=== PATIENT | female | born 1955 | race Caucasian/White ===

== ENCOUNTER 2021-07-26 02:45 | Inpatient (IN) ==
[2021-07-26] MEDS ORDERED: SODIUM CHLORIDE 0.9% 1000ML 1,000 ML IV ONE ×2 (03:12)
[2021-07-26] MEDS ORDERED: ONDANSETRON INJ 2 MG/ML 2 ML VIAL IV STA (03:12)
--- NOTE | 2021-07-26 03:16 | Emergency Department Note ---
Impression & Plan Hyponatremia, COVID-19, Dehydration ED Provider Note Name: DELMY MUNOZ Age: 66 Sex: F Arrives Via: Walk-In Informant: Patient ED Provider: Jimmy Bhatt MD Chief Complaint: Weakness Impression: See Above Medical Decision Makin yr old female with 10 days of covid arrives with worsening weakness and fatigued. Clearly dehydrated on exam, no neuro deficits and no evidence sepsis. Labs with acute electrolyte imbalance consistent with poor oral intake. She is feeling much improved with IV fluids. Given severity of electrolyte disturbance will need to come in for further management. She is not hypoxic and is breathing comfortably. Prior Medical Record and Triage/Nursing Notes reviewed by Me Additional history obtained from chart Differentials:Infection, dehydration, metabolic abnormality, hypo/hyper glycemia, electrolyte disturbance, anemia, hypoxia, cardiac sources, intracerebral event, toxicologic, neurologic, as well as other pathologies. Vital Signs: reviewed and remarkable for no significant abnormalities Interventions: saline lock, nss bolus 2 L IV Labs:Reviewed and remarkable for hypoNA, HypoK Consults:Dr Whalen Plan: Disposition:Hospitalization. Condition: Good History of Present Illness:66 yr old female arrives for evaluation of dehydration. Patient diagnosed with COVID 10 days ago. Initially cough and shob with fevers which has improved. She notes that that has improved but now with nausea, vomiting and diarrhea. Increasing weakness, fatigue and lightheaded. Notes worse with ambulation and standing. Better with rest. No blood in stool/vomit. No syncope, chest pain, shob, headache, neck pain, leg swelling, calf pain, abdominal pain, back pain, fevers, rashes, nor other symptoms. States she feels OK sitting in bed. ROS: See above HPI for pertinent positives & negatives. A total of 10 systems reviewed and were otherwise negative. Past Medical History:HTN, Endometrial cancer Past Surgical History:Hysterectomy Family History:See Below Social History:See Below Home Medications:See Below Allergies:See Below Vitals:Blood Pressure: 141/78, Pulse 61, RR 20, T 37.1C, O2 95% on RA Physical Exam: GENERAL: Patient is tired/dehydrated appearing and in no acute distress. EYES: No scleral icterus, unremarkable pupils. ENT: Mucous membranes dry, no nasal congestion. NECK: No masses appreciated, nomeningismus, trachea is midline. RESPIRATORY: No dyspnea. Clear to auscultation and equal bilaterally. No wheeze, no rhonchi. CARDIOVASCULAR: Regular rate and rhythm.No murmurs, rubs, gallops appreciated. GASTROINTESTINAL: Abdomen soft, non-tender, no peritonitis.Bowel sounds positive.No masses appreciated. BACK: No midline tenderness, no CVA tenderness EXTREMITIES: Normal motion all extremities, no cyanosis, no edema. NEUROLOGIC: Alert and oriented, no acute motor or sensory deficits, no focal weakness, cranial nerves grossly intact. SKIN: No rash, no jaundice, no diaphoresis. Poor skin turgor. PSYCH: Appropriate GCS: 15 ED Course: Times/Reassessments: Stable, feeling much improved with IV fluids, agreeable to hospitalization. Jimmy Bhatt MD Past Med/Surg History Medical History (Updated 07/27/21 @ 05:22 by Jimmy Bhatt MD) Hypertension Surgical History (Updated 07/26/21 @ 15:55 by Radha Ward MD, PhD) Endometrial ca Social History Smoking Status: Never smoker Hx Alcohol Use: No Hx Substance Use: No Preferred Language: Sinhala Communication Ability: Effective Maintenance Service Supervisor Required: No Beliefs That Will Affect Care: None Current Living Situation: Alone Other Information That Helps Us Care for You: No Feels Safe at Home: Yes Safety Concerns: Feels Safe At This Time Assistive Devices: None Allergies Allergies Allergy/AdvReac Type Severity Reaction Status Date / Time amoxicillin [From Augmentin] Allergy Severe Rash Verified 07/26/21 05:52 clavulanic acid Allergy Severe Unknown Verified 07/26/21 05:51 [From Augmentin] Penicillins Allergy Severe Unknown Verified 07/26/21 05:51 iodine Allergy Intermediate Unknown Verified 07/26/21 05:51 fexofenadine Allergy Unknown Rash Verified 07/26/21 05:52 pollen extracts Allergy Unknown Unknown Verified 07/26/21 05:52 povidone-iodine Allergy Unknown Unknown Verified 07/26/21 05:53 [From Betadine] ragweed pollen Allergy Unknown Unknown Verified 07/26/21 05:53 soap [From Betadine] Allergy Unknown Unknown Verified 07/26/21 05:53 Home Meds Home Medications Medication Instructions Recorded Confirmed Flonase 2 spray NA HS 07/26/21 07/26/21 lisinopril 20 20 - 25 tab PO DAILY 07/26/21 07/26/21 mg-hydrochlorothiazide 25 mg tablet Results & Data (ED) Vital Signs Vital Signs - 24 hr 07/26/21 02:53 Temperature 37.1 C Temperature Source Temporal Artery Scan Pulse Rate 61 Respiratory Rate 20 Blood Pressure 141/78 H Blood Pressure Mean 99 Blood Pressure Position Sitting Pulse Oximetry 95 Oxygen Delivery Method Room Air Sepsis Recent Fever Within 48 Hours No Sepsis New/Unexplained Change in Mental Status N/A Sepsis Action Taken by Nursing No Action Required Laboratory Data Result diagrams: 07/26/21 Unknown 07/26/21 Unknown Lab Results 07/26/21 07/26/21 Range/Units 04:25 04:25 COVID-19 Eval Order Covid19 at [facility] SARS-CoV-2 (PCR) POSITIVE A* (Negative) Administered Medications Acetaminophen (Acetaminophen 325 Mg Tab) 650 mg PO Q6H PRN PRN Reason: Fever/pain Stop: 08/25/21 07:12 Last Admin: 07/26/21 16:08 Dose: 650 mg Documented by: [id number] Enoxaparin Sodium (Enoxaparin Inj 40 Mg/0.4 Ml Syr) 40 mg SQ QAM WILMER Stop: 08/25/21 08:59 Last Admin: 07/26/21 08:17 Dose: 40 mg Documented by: [id number] Fluticasone Propionate (Fluticasone Propionate Na Spr 16 Gm Btl) 2 sprays NA HS WILMER Stop: 08/25/21 22:14 Last Admin: 07/26/21 22:29 Dose: 120 sprays Documented by: [id number] Dexamethasone 6 mg/ Syringe 1.5 mls @ 1 mls/min IV DAILY WILMER Stop: 08/05/21 13:29 Last Admin: 07/26/21 13:38 Dose: 1 mls/min Documented by: [id number] Lisinopril (Lisinopril 2.5 Mg Tab) 2.5 mg PO QAM WILMER Stop: 08/25/21 08:59 Last Admin: 07/26/21 08:18 Dose: 2.5 mg Documented by: [id number] Discontinued Medications Fluticasone Propionate (Fluticasone Propionate Na Spr 16 Gm Btl) 2 sprays NA DAILY WILMER Stop: 08/25/21 08:59 Last Admin: 07/26/21 08:24 Dose: Not Given Documented by: [id number] Sodium Chloride (Nss 1000ml) 1,000 mls @ 999 mls/hr IV .Q1H1M ONE Stop: 07/26/21 04:12 Last Infusion: 07/26/21 04:40 Dose: 0 mls/hr Documented by: [id number] Admin: 07/26/21 03:23 Dose: 999 mls/hr Documented by: [id number] Sodium Chloride (Nss 1000ml) 1,000 mls @ 999 mls/hr IV .Q1H1M ONE Stop: 07/26/21 04:12 Last Infusion: 07/26/21 04:40 Dose: 0 mls/hr Documented by: [id number] Admin: 07/26/21 03:23 Dose: 999 mls/hr Documented by: [id number] Potassium Chloride (K Parker / Wtr) 10 meq in 100 mls @ 100 mls/hr IV Q1H WILMER Stop: 07/26/21 06:44 Last Infusion: 07/26/21 08:01 Dose: 0 mls/hr Documented by: [id number] Admin: 07/26/21 05:56 Dose: 100 mls/hr Documented by: [id number] Infusion: 07/26/21 05:54 Dose: 100 mls/hr Documented by: [id number] Admin: 07/26/21 04:54 Dose: 100 mls/hr Documented by: [id number] Magnesium Sulfate/Dextrose (Magnesium Sulfate / D5w) 1 gm in 100 mls @ 50 mls/hr IV ONE ONE Stop: 07/26/21 09:29 Last Infusion: 07/26/21 10:26 Dose: 0 mls/hr Documented by: [id number] Admin: 07/26/21 08:16 Dose: 50 mls/hr Documented by: [id number] Potassium Chloride 20 meq/ (Dextrose) 510 mls @ 200 mls/hr IV .Q2H33M ONE Stop: 07/26/21 19:32 Last Infusion: 07/26/21 19:39 Dose: 0 mls/hr Documented by: [id number] Admin: 07/26/21 17:06 Dose: 200 mls/hr Documented by: [id number] Ondansetron HCl (Ondansetron Inj 2 Mg/Ml 2 Ml Vial) 4 mg IV NOW STA Stop: 07/26/21 03:13 Last Admin: 07/26/21 03:23 Dose: 4 mg Documented by: [id number] Potassium Chloride (Potassium Chloride Pwd 20 Meq Pack) 40 meq PO NOW STA Stop: 07/26/21 05:25 Last Admin: 07/26/21 06:23 Dose: 40 meq Documented by: [id number] Potassium Chloride (Potassium Chloride Pwd 20 Meq Pack) 40 meq PO ONE ONE Stop: 07/26/21 08:01 Last Admin: 07/26/21 08:17 Dose: 40 meq Documented by: [id number] Potassium Chloride (Potassium Chloride Pwd 20 Meq Pack) 40 meq PO ONE ONE Stop: 07/26/21 10:01 Last Admin: 07/26/21 11:22 Dose: 40 meq Documented by: [id number] Potassium Chloride (Potassium Chloride Crtab 20 Meq Tabcr) 40 meq PO ONE ONE Stop: 07/26/21 15:36 Last Admin: 07/26/21 16:08 Dose: 40 meq Documented by: [id number] Sodium Chloride (Sodium Chloride 0.65% Na Soln 45 Ml ([place])) Confirm Administered Dose 225 sprays .ROUTE .STK-MED ONE Stop: 07/26/21 14:26 Last Admin: 07/26/21 14:37 Dose: 2 sprays Documented by: [id number] Discharge Plan Visit Data Chief Complaint: Dehydration Stated Complaint: DEHYDRATED ED Provider: Jimmy Bhatt Discharge Problem: Hyponatremia, COVID-19, Dehydration Patient Disposition: Admitted As Inpatient Discharge Instructions Interventions: ED Discharge Assessment Last Done: 07/26/21 06:36
[2021-07-26 03:53] LABS: Basophils # (auto) 0.01 K/uL (0-0.2); Basophils % (auto) 0.1 %; Eosinophils # (auto) 0.02 K/uL (0-0.5); Eosinophils % (auto) 0.3 %; Hematocrit (blood only) 38.9 % (37-47); Hemoglobin 14.2 g/dL (12.0-16.0); Immature Granulocytes # (auto) 0.02 K/uL (0.00-0.02); Immature Granulocytes % (auto) 0.3 %; Lymphocytes # (auto) 0.86 K/uL (1.2-3.4); Lymphocytes % (auto) 12.9 %; Mean Corpuscular Hgb Conc 36.5 g/dL (32-36); Mean Corpuscular Volume 82.2 fL (80-100); Mean Platelet Volume 10.4 fL (7.4-10.4); Monocytes # (auto) 0.45 K/uL (0.11-0.59); Monocytes % (auto) 6.7 %; Neutrophils # (auto) 5.33 K/uL (1.4-6.5); Neutrophils % (auto) 79.7 %; Platelet Count 138 K/uL (130-400); RDW Coefficient of Variation 12.3 % (11.5-14.5); RDW Standard Deviation 37.2 fL (36.4-46.3); Red Blood Count 4.73 M/uL (4.2-5.4); White Blood Count 6.69 K/uL (4.8-10.8)
[2021-07-26 04:28] LABS: BUN Creatinine Ratio 9.3 (10-20); Calcium 7.9 mg/dl (8.5-10.1); Creatinine Clr Calc Pharmacy 99.7 ml/min; Est GFR (African American) 109.3 ml/min; Est GFR (Non-African American) 94.3 ml/min; Potassium 2.5 mmol/L (3.5-5.1)
[2021-07-26] MEDS: POTASSIUM CHLORIDE / WTR 10 MEQ/100 ML PLCT IV SCH ×2 (04:54→05:56)
[2021-07-26] MEDS ORDERED: POTASSIUM CHLORIDE PWD 20 MEQ PACK PO STA (05:24)
--- NOTE | 2021-07-26 05:24 | History & Physical Report ---
Date of Service July 26, 2021 Assessment & Plan (1) Hyponatremia: Plan: Hyponatremia, hypokalemia Multifactorial : Diarrhea secondary to COVID-19 illness rule out C. difficile, history Keflex Rx a few months ago home HCTZ contributory Hypertension, BP on the lower side uterine cancer status post surgery Medical telemetry Careful correction of sodium Hyponatremia work-up Replace potassium, check magnesium Appropriate to hold home diuretic for now until hyponatremia, hypokalemia resolved. Appropriate to decrease maintenance lisinopril dose for now given borderline BP Stool C. difficile DVT prophylaxis. Lovenox subcu Full code Text document was generated using Fingo voice recognition software. It may contain grammatical or spelling errors. Kindly contact undersigned for clarification of any documentation item in question. History of Present Illness Chief Complaint: Diarrhea, weakness, dehydration Primary Care Provider: Tu Neff MD History obtained from patient and records. Medical history significant for hypertension, uterine cancer status post surgery. Last week, patient had cough, fever symptoms. [place]. Patient has not received COVID-19 vaccination. Cough and shortness of breath symptoms resolved without antibiotic Rx. Patient later noted nausea, vomiting, watery diarrhea symptoms without abdominal pain. Increasing weakness and fatigue and lightheadedness. Patient denies chest pain, S OB. No recent out-of-town travel. Outpatient Keflex course about 2 months ago as per patient. Patient consulted ER for evaluation. Medical History as above Surgical History : Pelvic surgery Family History : DM, heart disease Personal/Social history : Non-smoker, no EtOH intake, cleaning work Allergies Allergy/AdvReac Type Severity Reaction Status Date / Time amoxicillin [From Augmentin] Allergy Severe Rash Verified 07/26/21 05:52 clavulanic acid Allergy Severe Unknown Verified 07/26/21 05:51 [From Augmentin] Penicillins Allergy Severe Unknown Verified 07/26/21 05:51 iodine Allergy Intermediate Unknown Verified 07/26/21 05:51 fexofenadine Allergy Unknown Rash Verified 07/26/21 05:52 pollen extracts Allergy Unknown Unknown Verified 07/26/21 05:52 povidone-iodine Allergy Unknown Unknown Verified 07/26/21 05:53 [From Betadine] ragweed pollen Allergy Unknown Unknown Verified 07/26/21 05:53 soap [From Betadine] Allergy Unknown Unknown Verified 07/26/21 05:53 Home Medications Medication Instructions Recorded Confirmed Type Flonase 2 spray NA DAILY 07/26/21 07/26/21 History lisinopril 20 20 - 25 tab PO DAILY 07/26/21 07/26/21 History mg-hydrochlorothiazide 25 mg tablet Past Med/Surg History Social History Smoking Status: Never smoker Hx Alcohol Use: No Hx Substance Use: No Preferred Language: Namibian Communication Ability: Effective Marina Manager Required: No Beliefs That Will Affect Care: None Current Living Situation: Alone Other Information That Helps Us Care for You: No Feels Safe at Home: Yes Safety Concerns: Feels Safe At This Time Assistive Devices: Denture - Upper Review of Systems Review of Systems: As per HPI, all 10 systems reviewed, all other ROS negative Physical Exam Physical Exam: GENERAL: Comfortable, slightly anxious, morbidly obese, looks younger for stated age, no respiratory distress SKIN: Normal color, warm HEENT: [place] palpebral conjunctivae, no ptosis, dry buccal mucosa NECK : Supple, short neck, no tenderness CHEST : CTA, no tenderness HEART : RRR, no obvious murmurs ABDOMEN: Some distention, nontender EXTREMITIES : Minimal LE swelling, no LE tenderness, no other conspicuous deformities noted NEUROLOGIC : Coherent, no facial asymmetry, no other gross focality Results & Data Results & Data ([facility]) Vital Signs (Past 12 Hours) Vital Signs Temp Pulse Pulse Resp BP BP Pulse Ox 07/26/21 04:58 63 18 125/74 94 07/26/21 03:34 71 18 109/68 95 07/26/21 02:53 37.1 C 61 20 141/78 H 95 Laboratory Results Laboratory Results WBC 6.69 K/uL (4.8-10.8) 07/26/21 Unknown RBC 4.73 M/uL (4.2-5.4) 07/26/21 Unknown Hgb 14.2 g/dL (12.0-16.0) 07/26/21 Unknown Hct 38.9 % (37-47) 07/26/21 Unknown MCV 82.2 fL (80-100) 07/26/21 Unknown MCH 30.0 pg (25-34) 07/26/21 Unknown MCHC 36.5 g/dL (32-36) H 07/26/21 Unknown RDW Std Deviation 37.2 fL (36.4-46.3) 07/26/21 Unknown RDW Coeff of Jaguar 12.3 % (11.5-14.5) 07/26/21 Unknown Plt Count 138 K/uL (130-400) 07/26/21 Unknown MPV 10.4 fL (7.4-10.4) 07/26/21 Unknown Immature Gran % (Auto) 0.3 % 07/26/21 Unknown Neut % (Auto) 79.7 % 07/26/21 Unknown Lymph % (Auto) 12.9 % 07/26/21 Unknown [place] % (Auto) 6.7 % 07/26/21 Unknown Eos % (Auto) 0.3 % 07/26/21 Unknown Baso % (Auto) 0.1 % 07/26/21 Unknown Neut # (Auto) 5.33 K/uL (1.4-6.5) 07/26/21 Unknown Lymph # (Auto) 0.86 K/uL (1.2-3.4) L 07/26/21 Unknown [place] # (Auto) 0.45 K/uL (0.11-0.59) 07/26/21 Unknown Eos # (Auto) 0.02 K/uL (0-0.5) 07/26/21 Unknown Baso # (Auto) 0.01 K/uL (0-0.2) 07/26/21 Unknown Immature Gran # (Auto) 0.02 K/uL (0.00-0.02) 07/26/21 Unknown Sodium 121 mmol/L (136-145) L 07/26/21 Unknown Potassium 2.5 mmol/L (3.5-5.1) L* 07/26/21 Unknown Chloride 83 mmol/L (98-107) L 07/26/21 Unknown Carbon Dioxide 30 mmol/L (21-32) 07/26/21 Unknown Anion Gap 8.0 (3-11) 07/26/21 Unknown BUN 6 mg/dl (7-18) L 07/26/21 Unknown Creatinine 0.60 mg/dl (0.6-1.2) 07/26/21 Unknown Est Cr Clr Drug Dosing 99.7 ml/min 07/26/21 Unknown Est GFR ( Amer) 109.3 ml/min 07/26/21 Unknown Est GFR (Non-Af Amer) 94.3 ml/min 07/26/21 Unknown BUN/Creatinine Ratio 9.3 (10-20) L 07/26/21 Unknown Glucose 105 mg/dl (70-99) H 07/26/21 Unknown Calcium 7.9 mg/dl (8.5-10.1) L 07/26/21 Unknown COVID-19 Eval Order Covid19 at [facility] 07/26/21 04:25
[2021-07-26 06:44] LABS: Albumin Level 3.2 gm/dl (3.4-5.0); Bilirubin Direct 0.2 mg/dl (0-0.2); Bilirubin,Total 0.6 mg/dl (0.2-1); Magnesium 1.8 mg/dl (1.8-2.4); Thyroid Stimulating Hormone 2.89 uIu/ml (0.300-4.500); Total Protein 7.1 gm/dl (6.4-8.2)
[2021-07-26] MEDS ORDERED: LORazepam 0.5 MG/1 ML VIAL IV PRN (07:13)
[2021-07-26] MEDS ORDERED: ACETAMINOPHEN 325 MG TAB PO PRN (07:13)
[2021-07-26] MEDS ORDERED: PROMETHAZINE HCL 12.5 MG in SODIUM CHLORIDE 0.9% 50 ML IV PRN (07:13)
[2021-07-26] MEDS ORDERED: MAGNESIUM SULFATE / D5W 1 GM/100 ML BAG IV ONE (07:30)
[2021-07-26] MEDS ORDERED: POTASSIUM CHLORIDE PWD 20 MEQ PACK PO ONE ×2 (08:00→10:00)
[2021-07-26] MEDS: FLUTICASONE PROPIONATE NA SPR 16 GM BTL SCH ×3 (08:17→22:29)
[2021-07-26] MEDS: ENOXAPARIN INJ 40 MG/0.4 ML SYR SQ SCH (08:17)
[2021-07-26] MEDS: lisinopril 2.5 MG TAB PO SCH (08:18)
--- NOTE | 2021-07-26 10:32 | XRay Report ---
XR chest 1V portable HISTORY: 66 years-old Female covid acute shortness breath with pneumonia COMPARISON: None TECHNIQUE: Portable AP view of the chest FINDINGS: Cardiac silhouette is upper limits of normal in size. Mild right hemidiaphragmatic elevation. Trace r ight pleural effusion. Mild patchy bilateral airspace opacities with interstitial coarsening. No pneu mothorax. Bones appear grossly intact. IMPRESSION: Bilateral pulmonary opacities are compatible with multifocal pneumonia. ACT 112: Negative or not required by law. The above report was generated using voice recognition software. It may contain grammatical, syntax o r spelling errors. Electronically signed by: Cezar Salgado M.D. 07/26/2021 10:31 AM
[2021-07-26 12:39] LABS: Appearance Urine Clear (Clear); Bilirubin Urine Negative (Negative); Blood Urine Negative (Negative); Color Urine Yellow; Glucose Urine UA Negative (Negative); Ketones Urine Negative (Negative); Leukocyte Esterase Urine Negative (Negative); Nitrite Urine Negative (Negative); Protein Urine Negative (Negative); Specific Gravity Urine 1.003 (1.000-1.030); Urobilinogen Urine Negative (Negative)
[2021-07-26] MEDS ORDERED: ALBUTEROL 0.083% NEBU SOLN 3 ML VIAL NEB PRN (12:53)
[2021-07-26 13:35] LABS: BUN Creatinine Ratio 6.9 (10-20); Calcium 8.1 mg/dl (8.5-10.1); Creatinine Clr Calc Pharmacy 107.6 ml/min; Est GFR (African American) 111.8 ml/min; Est GFR (Non-African American) 96.5 ml/min; Potassium 3.3 mmol/L (3.5-5.1)
[2021-07-26] MEDS: dexAMETHasone 6 MG in SYRINGE 0 ML IV SCH (13:38)
[2021-07-26] MEDS ORDERED: ONDANSETRON INJ 2 MG/ML 2 ML VIAL IV PRN (13:45)
[2021-07-26] MEDS ORDERED: SODIUM CHLORIDE 0.65% NA SOLN 45 ML (OCEAN) ONE (14:25)
[2021-07-26] MEDS ORDERED: POTASSIUM CHLORIDE CRTAB 20 MEQ TABCR PO ONE (15:35)
--- NOTE | 2021-07-26 15:46 | Nephrology Consultation ---
Date of Consultation July 26, 2021 Assessment & Plan (1) Hyponatremia: hypotonic hyponatremia from polydipsia based on labs and dehydration based on hx and response to therapy. corrected 10 points in between 6-12 hours. K has improved but not normalized -goal sNa is 127 at 0200 tomorrow; though in dehydrated pts overcorrection can be challenging to reverse -goal K = 4 -continue w/o fluid limit for now -1/2L D5W with 20 mEq total of K ordered -recheck bmp ordered for 1999 -NO NSAIDS; No hctz - agree w/ continuing to avoid these History of Present Illness Reason for Consultation: hyponatremia Requesting Physician: Dr Kelly Attending Physician: Nacho Dumont MD History of Present Illness 66 y/o F whom I'm asked to see for hyponatremia was admitted early this morning with severe hyponatremia and hypokalemia after about several days of outpatient / at home care for Covid. Her presenting sodium was 121; K was 2.5 >>no timestamp was submitted with these labs. On hctz as OP; also hx of resected uterine cancer. Last week pt had + OP covid test obtained to evaluate F, cough. Was managing self at home w/ OTC therapy including advil daily. For the past 3 days before andmhad diarrhea, vomiting, minimal po intkae, increasing fatigue and gener alized weakness. no bleeding, no new/worrisome voiding sx. no falls. Denies dypsnea or edema. she had 2L NS in ER after presenting w/ labs above as well as 20 mEq IV K and 120 mEq po K. She was on clear liquids when I evaluated her at approximately noon and with ongoing marked fatigue and generalized weakness; no sob, no BM since arrival, no emesis, no confusion. Allergies Allergy/AdvReac Type Severity Reaction Status Date / Time amoxicillin [From Augmentin] Allergy Severe Rash Verified 07/26/21 05:52 clavulanic acid Allergy Severe Unknown Verified 07/26/21 05:51 [From Augmentin] Penicillins Allergy Severe Unknown Verified 07/26/21 05:51 iodine Allergy Intermediate Unknown Verified 07/26/21 05:51 fexofenadine Allergy Unknown Rash Verified 07/26/21 05:52 pollen extracts Allergy Unknown Unknown Verified 07/26/21 05:52 povidone-iodine Allergy Unknown Unknown Verified 07/26/21 05:53 [From Betadine] ragweed pollen Allergy Unknown Unknown Verified 07/26/21 05:53 soap [From Betadine] Allergy Unknown Unknown Verified 07/26/21 05:53 Home Medications Medication Instructions Recorded Confirmed Type Flonase 2 spray NA DAILY 07/26/21 07/26/21 History lisinopril 20 20 - 25 tab PO DAILY 07/26/21 07/26/21 History mg-hydrochlorothiazide 25 mg tablet Patient History Medical History (Updated 07/26/21 @ 15:52 by Radha Ward MD, PhD) Hypertension Surgical History (Updated 07/26/21 @ 15:55 by Radha Ward MD, PhD) Endometrial ca Social History Smoking Status: Never smoker Hx Alcohol Use: No Hx Substance Use: No Preferred Language: [place] Communication Ability: Effective Paper Sheeter Required: No Beliefs That Will Affect Care: None Current Living Situation: Alone Other Information That Helps Us Care for You: No Feels Safe at Home: Yes Safety Concerns: Feels Safe At This Time Assistive Devices: Denture - Upper Review of Systems Review of Systems: All systems reviewed & are unremarkable except as noted in HPI & below Physical Exam Constitutional: well developed and well nourished on RA, looks tired Eyes: EOM intact bilaterally ENMT: Ears: no external ear abnormality Nose: no external nose abnormality Mouth: + dry oral mucous membranes Neck: no nuchal rigidity Respiratory: normal respiratory effort Auscultation: + diminished lung sounds and + crackles (crackles BL posterior de la torre not only bases) Cardiovascular: RRR, no murmur, no edema Gastrointestinal (Abdomen): Inspection/Auscultation: normal bowel sounds Percussion/Palpation: abdomen soft; abdomen nontender Musculoskeletal: Extremities: strength 5/5 throughout Skin: no rashes, warm and dry Neurologic: gomez, fluent if limited speech, no tremor Psychiatric: Orientation: oriented x 3 and + guarded Results & Data ([facility]) Vital Signs (Past 12 Hours) Vital Signs Temp Pulse Pulse Resp BP Pulse Ox Pulse Ox 07/26/21 11:19 37.2 C 62 19 119/62 93 07/26/21 07:38 36.9 C 61 19 131/66 94 07/26/21 07:28 36.5 C 59 L 131/66 94 07/26/21 07:15 61 07/26/21 07:13 94 07/26/21 07:06 36.8 C 63 20 147/80 H 91 07/26/21 06:18 68 18 120/68 93 07/26/21 04:58 63 18 125/74 94 Laboratory Results 07/26/21 Unknown 07/26/21 Unknown ur osm 87, Sanjeev 21; serum osms 248 Diagnostic Findings cxr IMPRESSION: Bilateral pulmonary opacities are compatible with multifocal pneumonia.
--- NOTE | 2021-07-26 15:57 | Hospitalist Progress Note ---
Date of Service July 26, 2021 Assessment & Plan (1) Hyponatremia: Plan: Multifocal COVID 19 pneumonia CXR:Bilateral pulmonary opacities are compatible with multifocal pneumonia. Saturations dropped below 94% Procalcitonin, CRP pending Started on Dexamethasone Isolation precautions--Airborne/Contact Encourage frequent Proning Lasix, Nebs as needed DVT prophylaxis on Lovenox Consider empiric antibiotics if procalcitonin elevated Check stool for C. difficile if recurrence of diarrhea Nausea, vomiting, diarrhea Secondary to COVID-19 infection Stool studies pending Received IV fluids Hyponatremia Hypokalemia Secondary to GI loses, Poor oral intake HCTZ contributed as well Sodium: 121> 132 Received IV fluids Hold HCTZ Nephrology consulted Replace electrolytes as needed Hypertension Continue lisinopril Monitor H/O Uterine cancer S/P surgery DVT Px: Lovenox SQ Code Status Full code Admission and Anticipated Discharge Date Admission Date: July 26, 2021 Subjective Patient is seen and examined at bedside States having cough with yellow expectoration Poor appetite States having generalized weakness and feeling tired Diarrhea resolved Reports nausea but no vomiting Denies chest Pain Review of Systems Review of Systems: All systems reviewed & are unremarkable except as noted in Subjective Physical Exam Physical Exam: Physical Exam: Vitals signs as noted above General Appearance:Obese, no apparent distress Head: normocephalic, Atraumatic Eyes: normal inspection, EOMI Neck: supple, Trachea midline Respiratory/Chest: Decreased breath sounds, CTA, No accessory muscle use Cardiovascular: S1, S2, No murmur Abdomen/GI:Soft, Non tender, Bowel sounds present Extremities/Musculoskeletal:normal inspection, no edema Neurologic/Psych:AAOX3, grossly no focal neurological deficits Skin: normal color, warm Results & Data Results & Data ([facility]) Vital Signs (Past 12 Hours) Vital Signs Temp Pulse Pulse Resp BP Pulse Ox Pulse Ox 07/26/21 15:43 38.2 C H 72 20 132/70 92 07/26/21 11:19 37.2 C 62 19 119/62 93 07/26/21 07:38 36.9 C 61 19 131/66 94 07/26/21 07:28 36.5 C 59 L 131/66 94 07/26/21 07:15 61 07/26/21 07:13 94 07/26/21 07:06 36.8 C 63 20 147/80 H 91 07/26/21 06:18 68 18 120/68 93 07/26/21 04:58 63 18 125/74 94 Laboratory Results Short CBC 07/26/21 Range/Units Unknown WBC 6.69 (4.8-10.8) K/uL Hgb 14.2 (12.0-16.0) g/dL Hct 38.9 (37-47) % Plt Count 138 (130-400) K/uL BMP 07/26/21 07/26/21 07/26/21 09:36 12:17 Unknown Sodium 132 L D 132 L 121 L Potassium 3.3 L D 2.5 L* Chloride 100 83 L Carbon Dioxide 28 30 BUN 4 L 6 L Creatinine 0.56 L 0.60 Glucose 95 105 H Calcium 8.1 L 7.9 L Liver Function 07/26/21 Range/Units Unknown Total Bilirubin 0.6 (0.2-1) mg/dl Direct Bilirubin 0.2 (0-0.2) mg/dl AST 112 H (15-37) U/L ALT 61 (12-78) U/L Alkaline Phosphatase 58 (45-117) U/L Albumin 3.2 L (3.4-5.0) gm/dl Urine 07/26/21 Range/Units 11:45 Urine Color Yellow Urine Appearance Clear (Clear) Urine pH 8.0 H (4.5-7.5) Ur Specific [place] 1.003 (1.000-1.030) Urine Protein Negative (Negative) Urine Glucose (UA) Negative (Negative)
[2021-07-26] MEDS ORDERED: POTASSIUM CHLORIDE 20 MEQ in DEXTROSE 5% 500 ML IV ONE (17:00)
[2021-07-26 20:15] LABS: BUN Creatinine Ratio 6.5 (10-20); C Reactive Protein 5.66 mg/dl (0-0.29); Calcium 7.7 mg/dl (8.5-10.1); Creatinine Clr Calc Pharmacy 100.5 ml/min; Est GFR (African American) 109.3 ml/min; Est GFR (Non-African American) 94.3 ml/min; Ferritin 452.5 ng/ml (8-388); Potassium 4.1 mmol/L (3.5-5.1)
[2021-07-27] MEDS: lisinopril 2.5 MG TAB PO SCH (07:33)
[2021-07-27] MEDS: dexAMETHasone 6 MG in SYRINGE 0 ML IV SCH (07:33)
[2021-07-27] MEDS: ENOXAPARIN INJ 40 MG/0.4 ML SYR SQ SCH (07:33)
[2021-07-27 08:37] LABS: Basophils # (auto) 0.01 K/uL (0-0.2); Basophils % (auto) 0.2 %; Hematocrit (blood only) 39.2 % (37-47); Hemoglobin 13.5 g/dL (12.0-16.0); Immature Granulocytes # (auto) 0.01 K/uL (0.00-0.02); Immature Granulocytes % (auto) 0.2 %; Lymphocytes # (auto) 0.58 K/uL (1.2-3.4); Mean Corpuscular Hemoglobin 29.6 pg (25-34); Mean Corpuscular Hgb Conc 34.4 g/dL (32-36); Mean Platelet Volume 10.4 fL (7.4-10.4); Monocytes # (auto) 0.42 K/uL (0.11-0.59); Monocytes % (auto) 9.4 %; Neutrophils # (auto) 3.44 K/uL (1.4-6.5); Neutrophils % (auto) 77.2 %; Platelet Count 171 K/uL (130-400); RDW Coefficient of Variation 13.2 % (11.5-14.5); RDW Standard Deviation 41.7 fL (36.4-46.3); Red Blood Count 4.56 M/uL (4.2-5.4); White Blood Count 4.46 K/uL (4.8-10.8)
[2021-07-27 09:06] LABS: BUN Creatinine Ratio 8.1 (10-20); Calcium 8.2 mg/dl (8.5-10.1); Creatinine Clr Calc Pharmacy 110.3 ml/min; Est GFR (African American) 113.2 ml/min; Est GFR (Non-African American) 97.6 ml/min; Potassium 3.8 mmol/L (3.5-5.1)
[2021-07-27] MEDS ORDERED: MELATONIN 3 MG TAB PO PRN (11:28)
--- NOTE | 2021-07-27 12:17 | Nephrology Progress Note ---
Date of Service July 27, 2021 Assessment & Plan (1) Hyponatremia: Plan: hypotonic hyponatremia from polydipsia based on labs and dehydration based on hx and response to therapy. corrected 10 points in between 6-12 hours and then stabilized. K has improved and nearly normalized after massive supplementation. attempted to reverse her rapid correction rate yesterday but as expected in this dehydrated pt overcorrection was challenging to reverse -goal K = 4 -continue w/o fluid limit for now -daily bmp while in house -NO NSAIDS; No hctz - agree w/ continuing to avoid these after d/c as well (see below) (2) Hypertension: Plan: controlled on very low dose lisinopril currently - increase as below Plan: Will sign off; I spent >10 minutes face to face w/ pt reviewing recs below and explaining hyponatremia today DISCHARGE RECOMMENDATIONS FOR NEPHROLOGY: -at d/c would start her on 10-20 mg daily lisinopril depending on clinical status > PCP can increase dose after d/c -avoid hctz in this pt unless/until full dose ACEI in place and labs followed closely -bmp when she sees pcp in f/u; recommend another bmp in 2-3 months for f/u -no indication to see nephrology in F/U unless hyponatremia issues persist -advised her to use compression socks to control pedal edema that she sometimes has rather than medication Care coordinated w/ Dr Dumont. Admission and Anticipated Discharge Date Admission Date: July 26, 2021 Subjective feels much improved today; tolerating po; states she walked 8 labs of unit w/o sob; no longer weak; no N/v/d Review of Systems Review of Systems: All systems reviewed & are unremarkable except as noted in Subjective Physical Exam Constitutional: well developed and well nourished Eyes: EOM intact bilaterally ENMT: Ears: no external ear abnormality Nose: no external nose abnormality Mouth: + dry oral mucous membranes Neck: no nuchal rigidity Respiratory: normal respiratory effort Auscultation: + diminished lung sounds; no crackles (crackles have resolved) Cardiovascular: RRR, no murmur, no edema Gastrointestinal (Abdomen): Inspection/Auscultation: normal bowel sounds Percussion/Palpation: abdomen soft; abdomen nontender Musculoskeletal: Extremities: strength 5/5 throughout Skin: no rashes, warm and dry Neurologic: gomez, fluent speech, no tremor Psychiatric: Orientation: oriented x 3 and + guarded Results & Data ([facility]) Vital Signs (Past 12 Hours) Vital Signs Temp Pulse Pulse Resp BP Pulse Ox Pulse Ox 07/27/21 11:43 36.9 C 67 19 129/72 97 07/27/21 08:00 76 07/27/21 07:29 36.4 C L 60 19 139/79 93 07/27/21 07:13 98 07/27/21 03:26 36.9 C 66 18 144/69 H 95 Laboratory Results 07/27/21 07:38 07/27/21 07:38
--- NOTE | 2021-07-27 17:04 | Hospitalist Progress Note ---
Date of Service July 27, 2021 Assessment & Plan (1) Hyponatremia: Plan: Multifocal COVID 19 pneumonia CXR:Bilateral pulmonary opacities are compatible with multifocal pneumonia. Saturations dropped below 94% Procalcitonin, CRP pending Continue Dexamethasone Isolation precautions--Airborne/Contact Encourage frequent Proning Lasix, Nebs as needed DVT prophylaxis on Lovenox Normal Procalcitonin Check stool for C. difficile if recurrence of diarrhea Clinically improving 2 step prior to discharge Nausea, vomiting, diarrhea Secondary to COVID-19 infection Stool studies pending Received IV fluids Hyponatremia Hypokalemia Secondary to GI loses, Poor oral intake HCTZ contributed as well Sodium: 121> 132> 133 Received IV fluids Hold HCTZ Appreciate Nephrology Input Replace electrolytes as needed No plan to continue HCTZ upon discharge Hypertension Continue lisinopril Monitor H/O Uterine cancer S/P surgery DVT Px: Lovenox SQ Code Status Full code Admission and Anticipated Discharge Date Admission Date: July 26, 2021 Subjective Patient is seen and examined at bedside States feeling well today Minimal cough No nausea, vomiting, diarrhea Weakness much improved Denies chest Pain Offers no other complaints Review of Systems Review of Systems: As per HPI, all 10 systems reviewed, all other ROS negative Physical Exam Physical Exam: Physical Exam: Vitals signs as noted above General Appearance:Obese, no apparent distress Head: normocephalic, Atraumatic Eyes: normal inspection, EOMI Neck: supple, Trachea midline Respiratory/Chest: Decreased breath sounds, CTA, No accessory muscle use Cardiovascular: S1, S2, No murmur Abdomen/GI:Soft, Non tender, Bowel sounds present Extremities/Musculoskeletal:normal inspection, no edema Neurologic/Psych:AAOX3, grossly no focal neurological deficits Skin: normal color, warm Results & Data Results & Data ([facility]) Vital Signs (Past 12 Hours) Vital Signs Temp Pulse Pulse Resp BP Pulse Ox Pulse Ox 07/27/21 16:00 76 07/27/21 15:23 36.7 C 70 19 136/77 95 07/27/21 11:43 36.9 C 67 19 129/72 97 07/27/21 08:00 76 07/27/21 07:29 36.4 C L 60 19 139/79 93 07/27/21 07:13 98 Laboratory Results Short CBC 07/27/21 Range/Units 07:38 WBC 4.46 L (4.8-10.8) K/uL Hgb 13.5 (12.0-16.0) g/dL Hct 39.2 (37-47) % Plt Count 171 (130-400) K/uL BMP 07/26/21 07/27/21 19:09 07:38 Sodium 133 L 133 L Potassium 4.1 D 3.8 Chloride 102 101 Carbon Dioxide 27 28 BUN 4 L 4 L Creatinine 0.60 0.54 L Glucose 188 H 105 H Calcium 7.7 L 8.2 L
[2021-07-27] MEDS: FLUTICASONE PROPIONATE NA SPR 16 GM BTL SCH (22:02)
[2021-07-28] MEDS: lisinopril 2.5 MG TAB PO SCH (08:24)
[2021-07-28] MEDS: ENOXAPARIN INJ 40 MG/0.4 ML SYR SQ SCH (08:24)
[2021-07-28] MEDS: dexAMETHasone 6 MG in SYRINGE 0 ML IV SCH (08:25)
[2021-07-28 08:37] LABS: Calcium 8.4 mg/dl (8.5-10.1); Creatinine Clr Calc Pharmacy 94.4 ml/min; Est GFR (African American) 107.6 ml/min; Est GFR (Non-African American) 92.8 ml/min; Magnesium 2.2 mg/dl (1.8-2.4); Potassium 3.5 mmol/L (3.5-5.1)
--- NOTE | 2021-07-28 13:20 | Hospitalist Progress Note ---
Date of Service July 28, 2021 Assessment & Plan (1) Hyponatremia: Plan: Multifocal COVID 19 pneumonia CXR:Bilateral pulmonary opacities are compatible with multifocal pneumonia. Saturations dropped below 94% Procalcitonin normal CRP: 5.6 Continue Dexamethasone Day #3 Isolation precautions--Airborne/Contact Encourage frequent Proning Lasix, Nebs as needed DVT prophylaxis on Lovenox Check stool for C. difficile if recurrence of diarrhea Clinically improved 2 step: Did not qualify for oxygen Nausea, vomiting, diarrhea Secondary to COVID-19 infection Resolved Received IV fluids Hyponatremia Hypokalemia Secondary to GI loses, Poor oral intake HCTZ contributed as well Sodium: 121> 132> 133> 134 Received IV fluids Held HCTZ Appreciate Nephrology Input Replace electrolytes as needed No plan to continue HCTZ upon discharge Hypertension Continue lisinopril Monitor H/O Uterine cancer S/P surgery DVT Px: Lovenox SQ Code Status Full code Admission and Anticipated Discharge Date Admission Date: July 26, 2021 Subjective Patient is seen and examined at bedside No new complaints Ambulating in hallway Eager to get discharged Denies chest pain, dyspnea, dizziness, nausea, abdominal pain, created Minimal cough intermittently Review of Systems Review of Systems: All systems reviewed & are unremarkable except as noted in Subjective Physical Exam Physical Exam: Physical Exam: Vitals signs as noted above General Appearance:Obese, no apparent distress Head: normocephalic, Atraumatic Eyes: normal inspection, EOMI Neck: supple, Trachea midline Respiratory/Chest: Decreased breath sounds, CTA, No accessory muscle use Cardiovascular: S1, S2, No murmur Abdomen/GI:Soft, Non tender, Bowel sounds present Extremities/Musculoskeletal:normal inspection, no edema Neurologic/Psych:AAOX3, grossly no focal neurological deficits Skin: normal color, warm Results & Data Results & Data ([facility]) Vital Signs (Past 12 Hours) Vital Signs Temp Pulse Pulse Pulse Pulse Pulse Resp 07/28/21 12:15 79 20 07/28/21 11:42 86 83 74 07/28/21 08:00 57 L 07/28/21 05:03 36.6 C 74 18 Resp Resp Resp BP Pulse Ox Pulse Ox Pulse Ox 07/28/21 12:15 153/93 H 92 07/28/21 11:42 18 18 16 90 92 07/28/21 08:00 07/28/21 05:03 146/74 H 94 Pulse Ox 07/28/21 12:15 07/28/21 11:42 96 07/28/21 08:00 07/28/21 05:03 Laboratory Results BMP 07/28/21 07:05 Sodium 134 L Potassium 3.5 Chloride 101 Carbon Dioxide 29 BUN 10 D Creatinine 0.63 Glucose 96 Calcium 8.4 L
--- NOTE | 2021-07-28 16:29 | Discharge Summary ---
Date of Service July 28, 2021 Admission HPI Per Admitting Provider History obtained from patient and records. Medical history significant for hypertension, uterine cancer status post surgery. Last week, patient had cough, fever symptoms. [place]. Patient has not received COVID-19 vaccination. Cough and shortness of breath symptoms resolved without antibiotic Rx. Patient later noted nausea, vomiting, watery diarrhea symptoms without abdominal pain. Increasing weakness and fatigue and lightheadedness. Patient denies chest pain, S OB. No recent out-of-town travel. Outpatient Keflex course about 2 months ago as per patient. Patient consulted ER for evaluation. Medical History as above Surgical History : Pelvic surgery Family History : DM, heart disease Personal/Social history : Non-smoker, no EtOH intake, cleaning work Admission Exam Per Admitting Provider Physical Exam Physical Exam: GENERAL: Comfortable, slightly anxious, morbidly obese, looks younger for stated age, no respiratory distress SKIN: Normal color, warm HEENT: [place] palpebral conjunctivae, no ptosis, dry buccal mucosa NECK : Supple, short neck, no tenderness CHEST : CTA, no tenderness HEART : RRR, no obvious murmurs ABDOMEN: Some distention, nontender EXTREMITIES : Minimal LE swelling, no LE tenderness, no other conspicuous deformities noted NEUROLOGIC : Coherent, no facial asymmetry, no other gross focality Principal Diagnosis Multifocal COVID 19 pneumonia Hyponatremia Hypokalemia Nausea, vomiting, diarrhea Discharge Data Allergies Allergy/AdvReac Type Severity Reaction Status Date / Time amoxicillin [From Augmentin] Allergy Severe Rash Verified 07/26/21 05:52 clavulanic acid Allergy Severe Unknown Verified 07/26/21 05:51 [From Augmentin] Penicillins Allergy Severe Unknown Verified 07/26/21 05:51 iodine Allergy Intermediate Unknown Verified 07/26/21 05:51 fexofenadine Allergy Unknown Rash Verified 07/26/21 05:52 pollen extracts Allergy Unknown Unknown Verified 07/26/21 05:52 povidone-iodine Allergy Unknown Unknown Verified 07/26/21 05:53 [From Betadine] ragweed pollen Allergy Unknown Unknown Verified 07/26/21 05:53 soap [From Betadine] Allergy Unknown Unknown Verified 07/26/21 05:53 Consultations 07/26/21 04:36 ED Decision to Admit Stat 07/26/21 08:55 Consult Nephrology Routine Hospital Course (1) Hyponatremia: Multifocal COVID 19 pneumonia CXR:Bilateral pulmonary opacities are compatible with multifocal pneumonia. Saturations dropped below 94% Procalcitonin normal CRP: 5.6 Continue Dexamethasone Day #3 Isolation precautions--Airborne/Contact Encourage frequent Proning Lasix, Nebs as needed DVT prophylaxis on Lovenox Check stool for C. difficile if recurrence of diarrhea Clinically improved 2 step: Did not qualify for oxygen Nausea, vomiting, diarrhea Secondary to COVID-19 infection Resolved Received IV fluids Hyponatremia Hypokalemia Secondary to GI loses, Poor oral intake HCTZ contributed as well Sodium: 121> 132> 133> 134 Received IV fluids Held HCTZ Appreciate Nephrology Input Replace electrolytes as needed No plan to continue HCTZ upon discharge Hypertension Continue lisinopril Monitor H/O Uterine cancer S/P surgery DVT Px: Lovenox SQ Code Status Full code Total Time Total Time Spent Total Time Spent (In Minutes): 38 minutes Discharge Plan Discharge Items Patient Disposition: Home - Self-Care Reason For Visit: HYPONATREMIA,HX COVID Discharge Diagnosis: Multifocal COVID 19 pneumonia Hyponatremia Hypokalemia Nausea, vomiting, diarrhea Activity: Per Instructions section Exercise/Sports: Wait until after follow-up appointment Non-emergency contact: Primary Care Provider Call non-emergency contact if: you have any medication questions, your symptoms worsen, your pain is concerning for you and you have a fever Follow-up/Referrals: Tu Neff MD [Primary Care Provider] - 08/04/21 2:00 pm (Date & Time 08/04/2021 2:00 PM Provider Tu Neff MD [facility] PLEASE NOTE THAT THIS IS A TELEPHONE APPOINTMENT. YOUR PHYSICIAN WILL CALL YOU AT THE APPOINTMENT TIME. IF YOU HAVE ANY QUESTIONS REGARDING THIS APPOINTMENT, PLEASE CALL ) Diet: Heart Healthy Addtl Attending Provider Instructions: Follow-up with your primary care physician Dr. Neff on 08/04/2021 2:00 PM Your final blood cultures are pending at the time of discharge. Follow up with your physician for results. Seek immediate medical attention if your symptoms reoccur or worsen Please take all medications as instructed on discharge list below. Please call if you have any questions or problems. You can reach a [facility] hospitalist on duty at [facility] 24 hours a day by calling [phone] Home Isolation COVID-19 Instructions The following information about Home Isolation is from the CDC Website: https://www.cdc.gov/coronavirus/2019-ncov/hcp/dghumlax-jlpwoqh-mxievh.html Stay home except to get medical care People who are mildly ill with COVID-19 are able to isolate at home during their illness. You should restrict activities outside your home, except for getting medical care. Do not go to work, school, or public areas. Avoid using public tra nsportation, ride-sharing, or taxis. Separate yourself from other people and animals in your home People: As much as possible, you should stay in a specific room and away from other people in your home. Also, you should use a separate bathroom, if available. Animals: You should restrict contact with pets and other animals while you are sick with COVID-19, just like you would around other people. Although there have not been reports of pets or other animals becoming sick with COVID-19, it is still recommended that people sick with COVID-19 limit contact with animals until more information is known about the virus. When possible, have another member of your household care for your animals while you are sick. If you are sick with COVID-19, avoid contact with your pet, including petting, snuggling, being kissed or licked, and sharing food. If you must care for your pet or be around animals while you are sick, wash your hands before and after you interact with pets and wear a face mask. Call ahead before visiting your doctor If you have a medical appointment, call the healthcare provider and tell them that you have or may have COVID-19. This will help the healthcare providers office take steps to keep other people from getting infected or exposed. Wear a face mask You should wear a face mask when you are around other people (e.g., sharing a room or vehicle) or pets and before you enter a healthcare providers office. If you are not able to wear a face mask (for example, because it causes trouble breathing), then people who live with you should not stay in the same room with you, or they should wear a face mask if they enter your room. Cover your coughs and sneezes Cover your mouth and nose with a tissue when you cough or sneeze. Throw used tissues in a lined trash can. Immediately wash your hands with soap and water for at least 20 seconds or, if soap and water are not available, clean your hands with an alcohol-based hand manager market intelligence that contains at least 60% alcohol. Clean your hands often Wash your hands often with soap and water for at least 20 seconds, especially after blowing your nose, coughing, or sneezing; going to the bathroom; and before eating or preparing food. If soap and water are not readily available, use an alcohol-based hand manager market intelligence with at least 60% alcohol, covering all surfaces of your hands and rubbing them together until they feel dry. Soap and water are the best option if hands are visibly dirty. Avoid touching your eyes, nose, and mouth with unwashed hands. Avoid sharing personal household items You should not share dishes, drinking glasses, cups, eating utensils, towels, or bedding with other people or pets in your home. After using these items, they should be washed thoroughly with soap and water. Clean all high-touch surfaces everyday High touch surfaces include counters, tabletops, doorknobs, bathroom fixtures, toilets, phones, keyboards, tablets, and bedside tables. Also, clean any surfaces that may have blood, stool, or body fluids on them. Use a household cleaning spray or wipe, according to the label instructions. Labels contain instructions for safe and effective use of the cleaning product including precautions you should take when applying the product, such as wearing gloves and making sure you have good ventilation during use of the product. Monitor your symptoms Seek prompt medical attention if your illness is worsening (e.g., difficulty breathing).Beforeseeking care, call your healthcare provider and tell them that you have, or are being evaluated for, COVID-19. Put on a face mask before you enter the facility. These steps will help the healthcare providers office to keep other people in the office or waiting room from getting infected or exposed. Ask your healthcare provider to call the local or state health department. Persons who are placed under active monitoring or facilitated self- monitoring should follow instructions provided by their local health department or occupational health professionals, as appropriate. When working with your local health department check their available hours. If you have a medical emergency and need to call 911, notify the dispatch personnel that you have, or are being evaluated for COVID-19. If possible, put on a face mask before emergency medical services arrive. Discontinuing home isolation Patients with confirmed COVID-19 should remain under home isolation precautions until the risk of secondary transmission to others is thought to be low. The decision to discontinue home isolation precautions should be made on a kyua-lt-ssnh basis, in consultation with healthcare providers and state and local health departments. Coronavirus disease 2019 (COVID-19) is a virus that causes a respiratory illness. It is caused by a coronavirus called 2019 novel coronavirus (2019- nCoV). There are many types of coronavirus. Coronaviruses are a very common cause of bronchitis. They may sometimes cause lung infection(pneumonia). Symptoms can range from mild to severe respiratory illness. These viruses are also foundin some animals. COVID-19 was first found in people in [facility], in late 2018. In 2020, several cases of COVID-19 have been confirmed in the [place] Public health officials are working to find the source. How the virus spreads is not yet fully known. It may be spread through droplets of fluid that a person coughs or sneezes into the air. It may be spread if you touch a surface with virus on it, such as a handle or object, and then touch your mouth. What are the symptoms of COVID-19? Some people have no symptoms or mild symptoms. Symptoms may appear 2 to 14 days after contact with the virus. Symptoms can include: Fever Coughing Trouble breathing What are possible complications from COVID-19? In many cases, this virus can cause infection (pneumonia) in both lungs. In some cases, this can cause . How is COVID-19 diagnosed? Your healthcare provider will ask about your symptoms. He or she will also ask about your recent travel and contact with sick people. Testing for the virus is only done through the CDC. If yourhealthcare provider thinks you may have COVID- 19, he or she will work with your local health department and the CDC on testing. Follow all instructions from your healthcare provider. COVID-19 is diagnosed by: Nasal and throat swab. A cotton-tipped swab is wiped inside your nose or throat. This is done to check for viruses in your nasal mucus. Sputum culture. A small sample of mucus coughed from your lungs (sputum) is collected if you have a cough. It is checked for the virus. How is COVID-19 treated? There is currently no medicine to treat the virus. Treatment is done to help your body while it fights the virus. This is known as supportive care. Sup portive care may include: Pain medicine. These include acetaminophen and ibuprofen. They are used to help ease pain and reduce fever. Bed rest. This helps your body fight the illness. For severe illness, you may need to stay in the hospital. Care during severe illness may include: IV (intravenous) fluids.These are given through a vein to help keep your body hydrated. Oxygen. Supplemental oxygen or ventilation with a breathing machine (ventilator) may be given. This is done to keep enough oxygen in your body. Are you at risk for COVID-19? If youve been to a place where people have been sick with this virus, you are at risk for infection. You are at risk if you: Recently traveled to an affected area Had contact with a sick person who recently traveled to this area Had contact with a person who was diagnosed with COVID-19 How can COVID-19 be prevented? There is no vaccine yet. The best prevention is to not have contact with the virus. The CDC advises that people should not travel to areas where there are COVID-19 outbreaks right now for any reason that is not urgent. To help prevent spreading the infection, wash your hands often, or use an alcohol-basedhand manager market intelligence. If you are in an area with COVID-19: Wash your hands often. Or use an alcohol-based hand manager market intelligence often. Only touch your eyes, nose, or mouth with clean hands. Dont have contact with people who are sick. Follow local instructions about being in public. For example, you may be told to not use public transport for a period of time. Stay away from markets that have live or animals. Wash your hands after touching any animals. Don't touch animals that may be sick. Dont share eating or drinking tools with sick people. Dont kiss someone who is sick. Clean surfaces often with disinfectant. If you were in an area with COVID-19 in the last 14 days: Call your healthcare provider. He or she can talk with local health staff to see what action may be needed. Follow all instructions from your provider. Take your temperature every morning and evening for at least 14 days. This is to check for fever. Keep a record of the readings. Keep watch for symptoms of the virus. Tell your provider right away if you have symptoms. If you were in an area with COVID-19 and have a fever or other symptoms: Dont panic. Keep in mind that other illnesses can cause similar symptoms. Stay away from work, school, and public places. Limit physical contact with family members. Don't kiss anyone or share eating or drinking utensils. Clean surfaces you touch with disinfectant. This is to help prevent the virus from spreading. Call your healthcare provider. Explain that you have been exposed to COVID-19 and have symptoms. Do this before going to any hospital. Wait for instructions. Keep in mind that healthcare staff may wear protective equipment such as masks, gowns, gloves, and eye protection. You may be put in a separate room. This is to prevent the possible virus from spreading. Tell the healthcare staff about recent travel. This includes local travel on public transport. Staff may need to find other people you have been in contact with. Follow all instructions the healthcare staff give you. If you have been diagnosed with COVID-19 Follow all instructions from your healthcare provider. Dont leave your home, except to get medical care. Call your healthcare providers office before going. They can prepare and give you instructions. This will help prevent the virus from spreading. Dont go to work, school, or public areas. Dont use public transport or taxis. Stay away from other people in your home. Have them wear face masks around you . Dont share household items or food. Wear a face mask if you can. This includes at home or in a medical facility. Cover your face with a tissue when you cough or sneeze. Throw the tissue away. Wash your hands. Wash your hands often. Caregivers should: Follow all instructions from healthcare staff. Wear a face mask and protective clothing as advised. Wash hands often. Keep track of the sick persons symptoms. Clean surfaces, fabrics, and laundry thoroughly. Keep other people away from the sick person. When to call your healthcare provider Call your healthcare provider: If youve recently traveled and have symptoms If you have been diagnosed with COVID-19 and your symptoms are worse To learn more To find out more about COVID-19, visit the CDC website at www.cdc.gov/coronavirus/2019-ncov/index.html. [employer]. [address] [place] [place] [address], [place] [address]. All rights reserved. This information is not intended as a substitute for professional medical care. Always follow your healthcare professional's instructions. This information has been adapted from [employer] Pending Studies at Discharge: No Stand-Alone Forms: [facility] [employer], Smoking Cessation Medications and DC Order Prescriptions: New lisinopril 20 mg tablet 20 mg PO DAILY Qty: 30 RF: 0 prednisone 20 mg tablet 20 mg PO DAILY Qty: 4 RF: 0 melatonin 3 mg Tablet 3 mg PO HS PRN (Reason: sleep) Qty: 5 RF: 0 Continued Flonase 2 spray NA HS RF: 0 Discontinued lisinopril-hydrochlorothiazide 20-25 mg tablet 20 - 25 tab PO DAILY RF: 0 Discharge Orders: Discharge Order (Routine); Ordered 07/28/21 Ordered By: Nacho Dumont Admission Data Admit Date/Time: 07/26/21 05:27 Attending Provider: Nacho Dumont Admit Provider: Shahbaz Whalen Primary Care Provider: Tu Neff Other Providers: Shahbaz Whalen ; Radha Ward Other Interventions: Discharge Summary Assessment (RN) Last Done: 07/28/21 15:12
== END 2021-07-28 15:34 | disposition home or self-care (01) | DRG 177 ==
LOC: ED 02:45 → 2S 05:27